=== PATIENT | female | born 1980 | race African-American/Black ===

== ENCOUNTER 2017-10-13 13:48 | Emergency (ER) | payer OTHER ==
[~2017-10-13] VITALS: Ht 162.6 cm; Wt 56.7 kg
[~2017-10-13 13:48] MED LIST: K-DUR 20 MEQ T20 MEQ PO; NYQUIL D COLD295 ML PO
[2017-10-13] MEDS ORDERED: KEFLEX500 M1 PO (14:14)
[2017-10-13 14:33] VITALS: BP 121/92
== END 2017-10-13 14:33 | disposition home or self-care (01) ==
LOC: ER 13:48
DX: B00.1 Herpesviral vesicular dermatitis (principal); F17.200 Nicotine dependence, unspecified, uncomplicated; Z88.0 Allergy status to penicillin